=== PATIENT | female | born 1980 | race Hispanic/Latino ===

== ENCOUNTER 2017-03-22 12:21 | Emergency (ER) | payer SELFPAY ==
--- NOTE | 2017-03-22 13:13 | RAD ---
UPRIGHT CHEST ONE VIEW: HISTORY: A 36-year-old female with chest pain which began today with left arm numbness for approximately 5 day s. COMPARISON: 08/06/2015. FINDINGS/IMPRESSION: Heart size is within normal limits. The lungs are clear. No pneumonia, edema, pleural effusion, or other acute process. POS: [facility]
[2017-03-22 13:23] LABS: #Basophils 0.1 thou/uL (0.0-0.2); #Eosinphils 0.2 thou/uL (0.0-0.7); #Lymphocytes 2.5 thou/uL (1.20-3.40); #Monocytes 0.6 thou/uL (0.11-0.59); #Neutrophils 6.4 thou/uL (1.40-6.50); %Basophils 0.7 % (0.0-1.0); %Eosinophils 1.9 % (0.0-10.0); %Lymphocytes 25.8 % (21.0-51.0); %Monocytes 5.9 % (0.0-10.0); %Neutrophils 65.8 % (42.0-75.0); Hemoglobin 14.9 g/dL (12.0-16.0); Mean Corpuscular HGB CONC 34.2 g/dL (32.0-36.0); Mean Corpuscular Hemoglobin 32.7 pg (27.0-31.0); Mean Corpuscular Volume 95.6 fl (81.0-99.0); Mean Platelet Volume 6.7 fL (7.4-10.4); Platelet Count 295 thou/uL (130-400); RBC Distribution Width 11.9 % (11.5-14.5); Red Blood Cell (RBC) Count 4.55 mill/uL (4.20-5.40); White Blood Cell (WBC) Count 9.7 thou/uL (4.8-10.8)
[2017-03-22 13:31] LABS: BHCG - Serum Negative (NEGATIVE); Pregs Control Background? CLEAR/WHITE (CLR/WHITE); Pregs Control Bar Appear? YES (CONTROL BAR)
[2017-03-22 13:45] LABS: ALT (SGPT) 36 U/L (8-55); AST (SGOT) 25 U/L (5-34); Albumin 3.8 g/dL (3.5-5.0); Alkaline Phosphatase 80 U/L (40-150); Anion Gap 14 mmol/L (10-20); BUN (Urea Nitrogen) 8 mg/dL (7.0-18.7); Bilirubin, Total 0.3 mg/dL (0.2-1.2); CK (CPK) 45 U/L (29-168); Calc. Creatinine Clearance 0 mL/min (70-130); Calcium 9.6 mg/dL (7.8-10.44); Carbon Dioxide 26 mmol/L (22-29); Chloride 103 mmol/L (98-107); Estimated GFR-MDRD Greater than 90; Globulin 3.4 g/dL (2.4-3.5); Glucose 134 mg/dL (70-105); Potassium 4.1 mmol/L (3.5-5.1); Protein, Total 7.2 g/dL (6.0-8.3); Sodium 139 mmol/L (136-145)
[2017-03-22 13:47] LABS: CKMB 0.7 ng/mL (0-6.6); Troponin I Less than 0.010 ng/mL (< 0.028)
--- NOTE | 2017-03-22 14:52 | CT ---
BRAIN CT WITH IV CONTRAST: HISTORY: A 36-year-old female with chest pain and left arm numbness for five days. COMPARISON: 10/19/2013 FINDINGS: No focal mass or midline shift. No intraaxial or extraaxial hemorrhage. Sinuses and mastoids are cl ear. IMPRESSION: No acute intracranial process. No mass or bleed. Stable from prior study. POS: [facility]
[2017-03-22 17:14] LABS: Troponin I 0.012 ng/mL (< 0.028)
[2017-03-22] MEDS ORDERED: Ketorolac Tromethamine 30 MG/ML VIAL ONE (17:52)
== END 2017-03-22 18:11 | disposition home or self-care (01) ==
LOC: ERS 12:21
DX: R07.89 Other chest pain (principal); M25.512 Pain in left shoulder; I10 Essential (primary) hypertension; Z79.899 Other long term (current) drug therapy
CPT/HCPCS: 70450; 71010; 80053; 82553; 84484; 84703; 85025; 93005; 96374; J1885

== ENCOUNTER 2017-03-28 16:09 | Outpatient (CLI) | payer SELFPAY | END 2017-03-28 16:10 | disposition home or self-care (01) | LOC: BICRAD 16:09 | DX: M25.512 Pain in left shoulder (principal) ==

== ENCOUNTER 2021-01-11 07:37 | Outpatient (CLI) | payer OTHER | END 2021-01-11 07:38 | disposition home or self-care (01) | LOC: BICULT 07:37 | PROVIDERS: ATTEND Family Medicine | DX: O09.522 Supervision of elderly multigravida, second trimester (principal); Z3A.23 23 weeks gestation of pregnancy | CPT/HCPCS: 76805 ==

== ENCOUNTER 2021-03-07 08:00 | Outpatient (CLI) | payer OTHER | END 2021-03-07 08:01 | disposition home or self-care (01) | LOC: BICULT 08:00 | PROVIDERS: ATTEND Family Medicine | DX: O24.13 Pre-existing type 2 diabetes mellitus, in the puerperium (principal); Z3A.31 31 weeks gestation of pregnancy | CPT/HCPCS: 76816; 93975 ==

== ENCOUNTER 2021-09-21 14:10 | Inpatient (IN) | payer SELFPAY ==
[2021-09-21 16:13] LABS: #Basophils 0.1 thou/uL (0.0-0.2); #Eosinphils 0.2 thou/uL (0.0-0.7); #Lymphocytes 2.7 thou/uL (1.20-3.40); #Monocytes 0.4 thou/uL (0.11-0.59); #Neutrophils 4.2 thou/uL (1.40-6.50); %Basophils 1.1 % (0.0-1.0); %Eosinophils 2.9 % (0.0-10.0); %Lymphocytes 35.5 % (21.0-51.0); %Monocytes 5.7 % (0.0-10.0); %Neutrophils 54.8 % (42.0-75.0); Hemoglobin 12.7 g/dL (12.0-16.0); Mean Corpuscular HGB CONC 32.2 g/dL (32.0-36.0); Mean Corpuscular Hemoglobin 27.3 pg (27.0-31.0); Mean Corpuscular Volume 84.8 fL (78.0-98.0); Mean Platelet Volume 7.4 fL (7.4-10.4); Platelet Count 291 thou/uL (130-400); RBC Distribution Width 13.9 % (11.5-14.5); Red Blood Cell (RBC) Count 4.66 mill/uL (4.20-5.40); White Blood Cell (WBC) Count 7.6 thou/uL (4.8-10.8)
[2021-09-21 16:32] LABS: ALT (SGPT) 20 U/L (8-55); AST (SGOT) 17 U/L (5-34); Albumin 3.6 g/dL (3.5-5.0); Alkaline Phosphatase 90 U/L (40-110); Anion Gap 12 mmol/L (10-20); BUN (Urea Nitrogen) 11 mg/dL (7.0-18.7); Bilirubin, Total 0.5 mg/dL (0.2-1.2); Calc. Creatinine Clearance 0 mL/min (70-130); Carbon Dioxide 29 mmol/L (22-29); Chloride 101 mmol/L (98-107); Estimated GFR 105; Globulin 3.3 g/dL (2.4-3.5); Glucose 294 mg/dL (70-105); Lipase 153 U/L (8-78); Potassium 3.7 mmol/L (3.5-5.1); Protein, Total 6.9 g/dL (6.0-8.3); Sodium 138 mmol/L (136-145)
[2021-09-21 18:17] LABS: Troponin I Less than 0.010 ng/mL (< 0.028)
[2021-09-21] MEDS ORDERED: Aspirin Chewable 81 MG TAB ONE (18:18)
[2021-09-21] MEDS ORDERED: Nitroglycerin 2% Ointment 1 INCH/1 GM Packet ONE (18:19)
[2021-09-21] MEDS ORDERED: Nitroglycerin 0.4 MG TAB 1 EACH ONE (20:12)
[2021-09-21 21:18] LABS: Troponin I Less than 0.010 ng/mL (< 0.028)
[2021-09-21 22:30] VITALS: BMI 38.0
[2021-09-21] MEDS: Labetalol HCl 100 MG TAB PO SCH (23:49)
[2021-09-22] MEDS: Labetalol HCl 100 MG TAB PO SCH ×3 (06:03→23:12)
[2021-09-22] MEDS ORDERED: Regadenoson 0.4 MG/5 ML SYRINGE ONE (07:26)
[2021-09-22] MEDS ORDERED: HumaLOG 300 UNITS/3 ML VIAL SC SCH (08:00)
[2021-09-22] MEDS ORDERED: Enoxaparin Sodium 30 MG/0.3 ML SYRINGE SC SCH (09:00)
[2021-09-22] MEDS: Amlodipine 10 MG TAB PO SCH (09:55)
[2021-09-22] MEDS: Aspirin 81 mg Enteric Coated Tablet PO SCH (09:57)
[2021-09-22] MEDS ORDERED: Insulin Glargine 30 UNITS/0.3 ML VIAL SC SCH ×2 (10:00→21:00)
[2021-09-22] MEDS: HumaLOG 300 UNITS/3 ML VIAL SC SCH ×2 (12:00→16:19)
[2021-09-23] MEDS: Labetalol HCl 100 MG TAB PO SCH (05:57)
[2021-09-23] MEDS: HumaLOG 300 UNITS/3 ML VIAL SC SCH ×2 (08:42→11:24)
[2021-09-23] MEDS: Aspirin 81 mg Enteric Coated Tablet PO SCH (08:43)
[2021-09-23] MEDS: Amlodipine 10 MG TAB PO SCH (08:44)
[2021-09-23] MEDS ORDERED: Enoxaparin Sodium 40 MG/0.4 ML SYRINGE SC SCH (09:00)
[2021-09-23 12:34] VITALS: BP 142/81; TEMP 97.3
== END 2021-09-23 15:23 | disposition home or self-care (01) | DRG 313 ==
LOC: ERS 14:10 → 2NO 20:13 → OBSVTOIN 09-22 16:04
PROVIDERS: ADMIT Internal Medicine; ATTEND Internal Medicine
DX: R07.89 Other chest pain (principal); Z20.822 Contact with and (suspected) exposure to COVID-19; E11.9 Type 2 diabetes mellitus without complications; E66.9 Obesity, unspecified; F41.9 Anxiety disorder, unspecified; I10 Essential (primary) hypertension; Z79.4 Long term (current) use of insulin; Z79.899 Other long term (current) drug therapy; Z79.82 Long term (current) use of aspirin; Z68.37 Body mass index [BMI] 37.0-37.9, adult; Z82.49 Family history of ischemic heart disease and other diseases of the circulatory system; Z90.49 Acquired absence of other specified parts of digestive tract
CPT/HCPCS: 36415; 36416; 71045; 78452; 80053; 83690; 84484; 85025; 93005; 93017; 94760; 96372; A9500; G0378; J1650; J1815; J2785; U0003; U0005

== ENCOUNTER 2022-03-02 21:22 | Inpatient (IN) | payer SELFPAY ==
[2022-03-02] MEDS ORDERED: Aspirin Chewable 81 MG TAB ONE (21:40)
[2022-03-02] MEDS ORDERED: Nitroglycerin 0.4 MG TAB 1 EACH ONE ×2 (21:40→22:02)
[2022-03-02] MEDS ORDERED: FENTANYL 50 MCG/ML 1 ML VIAL ONE (21:51)
[2022-03-02 21:56] LABS: #Basophils 0.1 thou/uL (0.0-0.2); #Eosinphils 0.3 thou/uL (0.0-0.7); #Monocytes 0.6 thou/uL (0.11-0.59); #Neutrophils 4.8 thou/uL (1.40-6.50); %Basophils 0.8 % (0.0-1.0); %Lymphocytes 41.4 % (21.0-51.0); %Monocytes 5.6 % (0.0-10.0); %Neutrophils 49.2 % (42.0-75.0); Hemoglobin 14.2 g/dL (12.0-16.0); Mean Corpuscular HGB CONC 33.2 g/dL (32.0-36.0); Mean Corpuscular Hemoglobin 28.3 pg (27.0-31.0); Mean Corpuscular Volume 85.2 fl (78.0-98.0); Mean Platelet Volume 7.3 fL (7.4-10.4); Platelet Count 288 10x3/uL (130-400); RBC Distribution Width 13.2 % (11.5-14.5); Red Blood Cell (RBC) Count 5.01 mill/uL (4.20-5.40); White Blood Cell (WBC) Count 9.8 10x3/uL (4.8-10.8)
[2022-03-02] MEDS ORDERED: Nitroglycerin 50 MG/250 ML BOT 250 ML ONE (22:05)
[2022-03-02 22:19] LABS: ALT (SGPT) 20 U/L (8-55); AST (SGOT) 18 U/L (5-34); Alkaline Phosphatase 107 U/L (40-110); Anion Gap 13 mmol/L (10-20); BUN (Urea Nitrogen) 13 mg/dL (7.0-18.7); Bilirubin, Total 0.2 mg/dL (0.2-1.2); Calc. Creatinine Clearance 0 mL/min (70-130); Calcium 9.2 mg/dL (7.8-10.44); Carbon Dioxide 24 mmol/L (22-29); Chloride 102 mmol/L (98-107); Estimated GFR 86; Globulin 3.7 g/dL (2.4-3.5); Glucose 358 mg/dL (70-105); Potassium 3.7 mmol/L (3.5-5.1); Protein, Total 7.7 g/dL (6.0-8.3); Sodium 135 mmol/L (136-145)
[2022-03-02] MEDS ORDERED: Amlodipine 10 MG TAB PO SCH (23:45)
[2022-03-02] MEDS ORDERED: Ondansetron ODT 4 MG TAB PO PRN (23:59)
[2022-03-02] MEDS ORDERED: Nitroglycerin 0.4 MG TAB (25 Tab Bottle) SL PRN (23:59)
[2022-03-02] MEDS ORDERED: Dextrose 50% Abboject 50 ML SYRINGE SLOW IVP PRN (23:59)
[2022-03-02] MEDS ORDERED: Acetaminophen 650 MG Suppository PR PRN (23:59)
[2022-03-02] MEDS ORDERED: Dextrose 5% in Water 1,000 ML IV PRN (23:59)
[2022-03-02] MEDS ORDERED: Ondansetron PF 4 MG/2 ML Vial IVP PRN (23:59)
[2022-03-02] MEDS ORDERED: HumaLOG 300 UNITS/3 ML VIAL SC PRN (23:59)
[2022-03-03] MEDS ORDERED: Amlodipine 5 MG TAB ONE ×2 (00:23→09:42)
[2022-03-03] MEDS ORDERED: Morphine 4 MG/ML VIAL SLOW IVP PRN (00:49)
[2022-03-03] MEDS ORDERED: Morphine 4 MG/ML VIAL ONE (00:49)
[2022-03-03 01:59] LABS: Troponin I 0.561 ng/mL (< 0.028)
[2022-03-03 05:14] LABS: #Eosinphils 0.2 thou/uL (0.0-0.7); #Lymphocytes 2.9 thou/uL (1.20-3.40); #Monocytes 0.7 thou/uL (0.11-0.59); #Neutrophils 5.3 thou/uL (1.40-6.50); %Basophils 0.5 % (0.0-1.0); %Eosinophils 2.5 % (0.0-10.0); %Lymphocytes 31.8 % (21.0-51.0); %Monocytes 7.6 % (0.0-10.0); %Neutrophils 57.7 % (42.0-75.0); Hemoglobin 13.3 g/dL (12.0-16.0); Mean Corpuscular HGB CONC 32.2 g/dL (32.0-36.0); Mean Corpuscular Hemoglobin 27.7 pg (27.0-31.0); Mean Corpuscular Volume 86.1 fl (78.0-98.0); Mean Platelet Volume 7.7 fL (7.4-10.4); Platelet Count 267 10x3/uL (130-400); RBC Distribution Width 13.2 % (11.5-14.5); Red Blood Cell (RBC) Count 4.81 mill/uL (4.20-5.40); White Blood Cell (WBC) Count 9.1 10x3/uL (4.8-10.8)
[2022-03-03 05:24] LABS: Anion Gap 13 mmol/L (10-20); BUN (Urea Nitrogen) 13 mg/dL (7.0-18.7); Calc. Creatinine Clearance 0 mL/min (70-130); Calcium 8.6 mg/dL (7.8-10.44); Carbon Dioxide 24 mmol/L (22-29); Chloride 104 mmol/L (98-107); Estimated GFR 113; Glucose 290 mg/dL (70-105); Potassium 3.7 mmol/L (3.5-5.1); Sodium 137 mmol/L (136-145)
[2022-03-03 05:41] LABS: Troponin I 0.681 ng/mL (< 0.028)
[2022-03-03] MEDS ORDERED: Nitroglycerin 50 MG/250 ML BOT 250 ML IVPB SCH (09:00)
[2022-03-03] MEDS ORDERED: Enoxaparin Sodium 40 MG/0.4 ML SYRINGE SC SCH (09:00)
[2022-03-03] MEDS: Aspirin Chewable 81 MG TAB PO SCH (09:39)
[2022-03-03] MEDS ORDERED: Enoxaparin Sodium 100 MG/ML SYRINGE ONE (09:42)
[2022-03-03] MEDS: Enoxaparin Sodium 100 MG/ML SYRINGE SC SCH ×2 (09:44→20:17)
[2022-03-03] MEDS ORDERED: Acetaminophen 325 MG TAB ONE (09:47)
[2022-03-03] MEDS: Acetaminophen 325 MG TAB PO PRN ×2 (09:49→18:42)
[2022-03-03 13:02] LABS: SARS-CoV-2 NAA Rapid Test Not Detected (NotDetected)
[2022-03-03] MEDS: HumaLOG 300 UNITS/3 ML VIAL SC PRN (13:56)
[2022-03-03] MEDS ORDERED: Ketorolac Tromethamine 30 MG/ML VIAL IVP SCH (19:15)
[2022-03-03] MEDS: Famotidine 20 MG TAB PO SCH (20:17)
[2022-03-03] MEDS: Insulin Glargine 30 UNITS/0.3 ML VIAL SC SCH (20:20)
[2022-03-03 20:23] LABS: BHCG - Serum Negative (NEGATIVE); Pregs Control Background? CLEAR/WHITE (CLR/WHITE); Pregs Control Bar Appear? YES (CONTROL BAR)
[2022-03-03 20:44] LABS: Magnesium 1.7 mg/dL (1.6-2.6)
[2022-03-03] MEDS ORDERED: Metoprolol Tartrate 25 MG TAB PO SCH (21:00)
[2022-03-03] MEDS ORDERED: Sodium Chloride 0.9% 1,000 ML IV SCH (23:59)
[2022-03-04 04:22] LABS: #Eosinphils 0.2 thou/uL (0.0-0.7); #Lymphocytes 2.8 thou/uL (1.20-3.40); #Monocytes 0.8 thou/uL (0.11-0.59); #Neutrophils 6.9 thou/uL (1.40-6.50); %Basophils 0.2 % (0.0-1.0); %Eosinophils 1.7 % (0.0-10.0); %Monocytes 7.4 % (0.0-10.0); %Neutrophils 64.6 % (42.0-75.0); Hemoglobin 12.6 g/dL (12.0-16.0); Hemoglobin A1c 11.3 % (4.0-6.0); Mean Corpuscular HGB CONC 32.6 g/dL (32.0-36.0); Mean Corpuscular Hemoglobin 27.9 pg (27.0-31.0); Mean Corpuscular Volume 85.6 fl (78.0-98.0); Mean Platelet Volume 7.5 fL (7.4-10.4); Platelet Count 268 10x3/uL (130-400); RBC Distribution Width 13.3 % (11.5-14.5); Red Blood Cell (RBC) Count 4.52 mill/uL (4.20-5.40); White Blood Cell (WBC) Count 10.6 10x3/uL (4.8-10.8)
[2022-03-04 04:39] LABS: Anion Gap 12 mmol/L (10-20); BUN (Urea Nitrogen) 14 mg/dL (7.0-18.7); Calc. Creatinine Clearance 0 mL/min (70-130); Calcium 8.3 mg/dL (7.8-10.44); Carbon Dioxide 21 mmol/L (22-29); Cardiac Risk 4.9 (Less than 4.5); Chloride 103 mmol/L (98-107); Cholesterol 147 mg/dl (< 200 Desired); Estimated GFR 114; Glucose 272 mg/dL (70-105); HDL Cholesterol 30 mg/dL (>60 Neg Risk); LDL Cholesterol, Calculated 76 mg/dL; Potassium 3.8 mmol/L (3.5-5.1); Sodium 132 mmol/L (136-145); Triglycerides 207 mg/dL (Less than 150)
[2022-03-04] MEDS: HumaLOG 300 UNITS/3 ML VIAL SC PRN ×3 (06:15→17:23)
[2022-03-04 07:56] LABS: Amphetamine Not Detected (NotDetected); Barbiturates Screen Not Detected (NotDetected); Benzodiazepine Screen Not Detected (NotDetected); Cocaine Metabolite Screen Not Detected (NotDetected); Methadone Not Detected (NotDetected); Methamphetamine Not Detected (NotDetected); Opiate Screen Detected (NotDetected); Oxycodone Screen Not Detected (NotDetected); Phencyclidine (PCP) Not Detected (NotDetected); THC/Cannabinoid Screen Not Detected (NotDetected); Tricyclic Screen Not Detected (NotDetected)
[2022-03-04] MEDS ORDERED: Metoprolol Tartrate 25 MG TAB PO SCH (09:00)
[2022-03-04] MEDS ORDERED: Amlodipine 10 MG TAB PO SCH (09:00)
[2022-03-04] MEDS: Acetaminophen 325 MG TAB PO PRN (09:05)
[2022-03-04] MEDS: Enoxaparin Sodium 100 MG/ML SYRINGE SC SCH (09:07)
[2022-03-04] MEDS: Famotidine 20 MG TAB PO SCH ×2 (09:07→09:29)
[2022-03-04] MEDS: Aspirin Chewable 81 MG TAB PO SCH (09:07)
[2022-03-04] MEDS ORDERED: Communication Order-Pharmacy FS SCH (09:30)
[2022-03-04] MEDS: Carvedilol 6.25 MG TAB PO SCH (17:22)
[2022-03-04] MEDS ORDERED: Metoprolol Tartrate 50 MG TAB PO SCH (21:00)
[2022-03-04] MEDS: Insulin Glargine 30 UNITS/0.3 ML VIAL SC SCH (21:31)
[2022-03-05 05:51] LABS: Critical Call Chem Troponin I RESULT DECREASING; Troponin I 1.933 ng/mL (< 0.028)
[2022-03-05] MEDS ORDERED: Sodium Chloride 0.9% 1,000 ML IV SCH ×2 (06:00→13:34)
[2022-03-05] MEDS: Lisinopril 10 MG TAB PO SCH ×2 (06:32→20:11)
[2022-03-05] MEDS: Carvedilol 6.25 MG TAB PO SCH ×2 (06:32→18:02)
[2022-03-05] MEDS: Famotidine 20 MG TAB PO SCH ×2 (06:32→20:12)
[2022-03-05] MEDS: Aspirin Chewable 81 MG TAB PO SCH (06:32)
[2022-03-05 09:20] LABS: Anion Gap 13 mmol/L (10-20); BUN (Urea Nitrogen) 13 mg/dL (7.0-18.7); Calc. Creatinine Clearance 168 mL/min (70-130); Calcium 8.5 mg/dL (7.8-10.44); Carbon Dioxide 22 mmol/L (22-29); Chloride 107 mmol/L (98-107); Estimated GFR 115; Glucose 251 mg/dL (70-105); Magnesium 1.8 mg/dL (1.6-2.6); Potassium 3.8 mmol/L (3.5-5.1); Sodium 138 mmol/L (136-145)
[2022-03-05] MEDS ORDERED: Electrolyte Replacement Protocol 1 EACH FS SCH (10:00)
[2022-03-05] MEDS ORDERED: Electrolyte Replacement Protocol FS PRN (10:00)
[2022-03-05] MEDS ORDERED: Lidocaine 1% (PF) 30 ML VIAL ONE (10:46)
[2022-03-05] MEDS ORDERED: Heparin 10,000 UNITS/ 10 ML VIAL ONE ×2 (10:46→11:01)
[2022-03-05] MEDS ORDERED: Midazolam HCl 2 mg/2 ml Vial ONE (11:00)
[2022-03-05] MEDS ORDERED: FENTANYL 50 MCG/ML 1 ML VIAL ONE (11:01)
[2022-03-05] MEDS ORDERED: Atropine Sulfate 1 mg/1 ml Vial ONE (11:46)
[2022-03-05] MEDS ORDERED: Phenylephrine 10 MG/ML VIAL ONE (11:47)
[2022-03-05] MEDS ORDERED: Clopidogrel Bisulfate 300 MG TAB ONE (11:57)
[2022-03-05] MEDS ORDERED: Iopamidol 370 76% 100 ML VIAL ONE (13:15)
[2022-03-05] MEDS ORDERED: Magnesium 2 GM/50 ML(in water) 2 GM in Premix Bag 1 BAG IVPB SCH (13:15)
[2022-03-05] MEDS ORDERED: Iopamidol 370 76% 50 ML VIAL FS ONE (13:15)
[2022-03-05] MEDS ORDERED: Morphine 4 MG/ML VIAL ONE (15:57)
[2022-03-05] MEDS: Acetaminophen 325 MG TAB PO PRN (20:13)
[2022-03-05] MEDS ORDERED: Atorvastatin Calcium 40 MG TAB PO SCH (21:00)
[2022-03-06 05:31] VITALS: TEMP 98.6
[2022-03-06 05:38] LABS: #Eosinphils 0.3 thou/uL (0.0-0.7); #Lymphocytes 2.2 thou/uL (1.20-3.40); #Monocytes 0.7 thou/uL (0.11-0.59); #Neutrophils 5.7 thou/uL (1.40-6.50); %Basophils 0.4 % (0.0-1.0); %Eosinophils 2.9 % (0.0-10.0); %Monocytes 7.6 % (0.0-10.0); %Neutrophils 64.1 % (42.0-75.0); Hemoglobin 12.7 g/dL (12.0-16.0); Mean Corpuscular HGB CONC 32.1 g/dL (32.0-36.0); Mean Corpuscular Hemoglobin 27.9 pg (27.0-31.0); Mean Corpuscular Volume 86.8 fl (78.0-98.0); Mean Platelet Volume 7.6 fL (7.4-10.4); Platelet Count 283 10x3/uL (130-400); RBC Distribution Width 13.7 % (11.5-14.5); Red Blood Cell (RBC) Count 4.55 mill/uL (4.20-5.40); White Blood Cell (WBC) Count 8.9 10x3/uL (4.8-10.8)
[2022-03-06 05:53] LABS: Anion Gap 12 mmol/L (10-20); BUN (Urea Nitrogen) 14 mg/dL (7.0-18.7); Calc. Creatinine Clearance 180 mL/min (70-130); Calcium 8.4 mg/dL (7.8-10.44); Carbon Dioxide 21 mmol/L (22-29); Chloride 107 mmol/L (98-107); Estimated GFR 117; Glucose 170 mg/dL (70-105); Magnesium 2.1 mg/dL (1.6-2.6); Potassium 4.1 mmol/L (3.5-5.1); Sodium 136 mmol/L (136-145)
[2022-03-06 08:45] VITALS: BP 130/74
[2022-03-06] MEDS: Famotidine 20 MG TAB PO SCH (08:45)
[2022-03-06] MEDS: Lisinopril 10 MG TAB PO SCH (08:45)
[2022-03-06] MEDS: Carvedilol 6.25 MG TAB PO SCH (08:45)
[2022-03-06] MEDS: Aspirin Chewable 81 MG TAB PO SCH (08:45)
[2022-03-06] MEDS ORDERED: Labetalol HCl 100 MG/20 ML VIAL SLOW IVP PRN (10:28)
[2022-03-06] MEDS ORDERED: Clopidogrel Bisulfate 75 MG TAB PO SCH (14:30)
[2022-03-07] MEDS ORDERED: Clopidogrel Bisulfate 75 MG TAB PO SCH (09:00)
== END 2022-03-06 16:55 | disposition home or self-care (01) | DRG 248 ==
LOC: ERS 21:22 → ERHOLD 23:20 → CCU 03-03 11:42 → 2NO 03-04 14:57
PROVIDERS: ADMIT Student in an Organized Health Care Education/Training Program; ATTEND Internal Medicine
PROC: 4A023N7 Measurement of Cardiac Sampling and Pressure, Left Heart, Percutaneous Approach (ICD-10-PCS; principal; 2022-03-05)
PROC: 02723FZ Dilation of Coronary Artery, Three Arteries with Three Intraluminal Devices, Percutaneous Approach (ICD-10-PCS; 2022-03-05)
PROC: B2111ZZ Fluoroscopy of Multiple Coronary Arteries using Low Osmolar Contrast (ICD-10-PCS; 2022-03-05)
PROC: B2151ZZ Fluoroscopy of Left Heart using Low Osmolar Contrast (ICD-10-PCS; 2022-03-05)
DX: I16.1 Hypertensive emergency (principal); I21.4 Non-ST elevation (NSTEMI) myocardial infarction; E87.1 Hypo-osmolality and hyponatremia; Z20.822 Contact with and (suspected) exposure to COVID-19; E66.9 Obesity, unspecified; E11.9 Type 2 diabetes mellitus without complications; E78.5 Hyperlipidemia, unspecified; I25.10 Atherosclerotic heart disease of native coronary artery without angina pectoris; I08.1 Rheumatic disorders of both mitral and tricuspid valves; Z79.899 Other long term (current) drug therapy; Z68.37 Body mass index [BMI] 37.0-37.9, adult; Z79.84 Long term (current) use of oral hypoglycemic drugs; Z79.4 Long term (current) use of insulin; Z79.02 Long term (current) use of antithrombotics/antiplatelets; Z90.49 Acquired absence of other specified parts of digestive tract
CPT/HCPCS: 36415; 36416; 71045; 80048; 80053; 80061; 80306; 83036; 83690; 83735; 83880; 84443; 84484; 84703; 85025; 85347; 92928; 92929; 93005; 93010; 93306; 93458; 94760; 96365; 96366; 96374; 96375; 99152; 99153; C1769; C1887; J0461; J1644; J1650; J1815; J1885; J2001; J2250; J2270; J2370; J3010; J3475; J7050; Q9967; U0002